=== PATIENT | female | born 1955 | race Two or more races ===

== ENCOUNTER 2016-06-18 12:17 | Emergency (ER) | payer MEDICAID ==
[2016-06-18 14:06] VITALS: BP 119/78; PULSE 104; RESP 20; TEMP 98.8; O2SAT 94
--- NOTE | 2016-06-18 14:43 | UCPHY ---
H & P Time Seen by Provider: 06/18/16 14:10 Patient Type: Established HPI/ROS: This patient has sore throat, cough and chills that started 3 days prior to arrival. She reports feeling of chest congestion associated with this. She has mild myalgias but denies any fevers. She notes no exacerbating or alleviating factors for her symptoms. ROS: No fatigue. She reports no significant nasal congestion. No ear pain. No pleuritic pain. No respiratory distress. No vomiting. 7 point ROS is otherwise negative. Past Medical/Surgical History: GERD. Otherwise healthy Smoking Status: Former smoker Physical Exam: General Appearance: Alert, no distress. Eyes: Pupils equal and round no pallor or injection. ENT, Mouth: Mucous membranes moist. Respiratory: Mild rhonchi and expiratory wheeze bilaterally. No rales. No respiratory distress. Cardiovascular: Regular rate and rhythm. No murmur gallop or rub Gastrointestinal: Abdomen is soft and nontender, no masses, bowel sounds normal. Neurological: Alert with no focal deficits Skin: Warm and dry, no rashes. Musculoskeletal: Neck is supple nontender. Extremities are symmetrical, full range of motion. Psychiatric: Mood and affect are normal DIFFERENTIAL DIAGNOSIS: After history and physical exam differential diagnosis was considered for bronchitis, viral URI with cough, doubt pneumonia Constitutional: Initial Vital Signs Temperature (C) 37.1 C 06/18/16 14:01 Heart Rate 104 H 06/18/16 14:01 Respiratory Rate 20 06/18/16 14:01 Blood Pressure 119/78 06/18/16 14:01 O2 Sat (%) 94 06/18/16 14:01 O2 Delivery Mode Room Air Allergies/Adverse Reactions: azithromycin [From Zithromax] Allergy (Unknown, Verified 06/18/16 14:01) codeine Allergy (Unknown, Verified 06/18/16 14:01) homatropine [From Hydromet] Allergy (Unknown, Verified 03/26/15 20:08) homatropine methylbromide [From Hydromet] Allergy (Unknown, Verified 06/18/16 14 :01) hydrocodone bitartrate [From Vicodin] Allergy (Unknown, Verified 06/18/16 14:01) nitrofurantoin macrocrystalline [From Macrodantin] Allergy (Unknown, Verified 14:01) Sulfa (Sulfonamide Antibiotics) Allergy (Unknown, Verified 06/18/16 14:01) Home Medications: Medication Instructions Recorded Pepcid 09/08/14 Fluoxetine 02/19/15 Albuterol Hfa Anes Only [Proair 2 puffs IH Q4 PRN #1 mdi 06/18/16 Hfa Icu (*)] Doxycycline Hyclate 100 mg PO BID #14 capsule 06/18/16 MDM/Departure - MDM ED Course/Re-evaluation: I counseled the patient regarding bronchitis. Her rapid influenza swab is negative. - Depart Disposition: Home, Routine, Self-Care Instructions: Acute Bronchitis (ED) Additional Instructions: Diagnosis: Acute bronchitis Plan: Humidifier Doxycycline antibiotic Albuterol inhaler with spacer for cough, wheeze or shortness of breath Ibuprofen for fevers Return for any significant worsening despite the treatment plan Stand Alone Forms: Work Excuse Prescriptions: Doxycycline Hyclate 100 mg PO BID #14 capsule Albuterol Hfa Anes Only [Proair Hfa Icu (*)] 2 puffs IH Q4 PRN #1 mdi PRN Reason: Wheezing Referrals: Savita Vides DO [Primary Care Provider] - As per Instructions - PQRS PQRS Measurement: NA
== END 2016-06-18 15:00 | disposition home or self-care (01) ==
LOC: CED 12:17
DX: J20.9 Acute bronchitis, unspecified (principal)
CPT/HCPCS: 87400-PO; 99214-PO; G0463-PO

== ENCOUNTER 2016-07-21 22:06 | Emergency (ER) | payer MEDICAID ==
[2016-07-21 22:40] VITALS: BP 113/78; PULSE 80; RESP 16; TEMP 97.7; O2SAT 99
[2016-07-21] MEDS ORDERED: TDAP ADULT 0.5 ML INJ (BOOSTRIX) IM ONE (22:52)
--- NOTE | 2016-07-21 22:53 | UCPHY ---
H & P Time Seen by Provider: 07/21/16 22:36 Patient Type: Established HPI/ROS: CC: Laceration of thumb that was simply will not heal HPI: Right Handed Injury of the right thumb, from cutting edge of a Saran wrap container some 5 days ago This happened at home , occurring 5 days ago Reports there is no numbness or loss of sensation. Contamination: None FB possibility none She is here tonight as a simply will not heal and has continued to bother and cause some pain to the tip ROS Neuro: No numbness or tingling or loss of sensation Smoking Status: Former smoker Physical Exam: Gen: Well-developed. Well-nourished. No odor of alcohol. Nontoxic. Afebrile. Extremity: There is a [to ] cm, [linear] laceration that is [split] to the pad of the right thumb. It has a whitish appearance of a small degree as well as some erythema around it to suggest a wound infection. There is no lymphangitis Function: [Without] signs of tendon dysfnction NV Status: Intact CMS: Intact Allergies/Adverse Reactions: azithromycin [From Zithromax] Allergy (Unknown, Verified 07/21/16 22:37) codeine Allergy (Unknown, Verified 07/21/16 22:37) homatropine [From Hydromet] Allergy (Unknown, Verified 07/21/16 22:37) homatropine methylbromide [From Hydromet] Allergy (Unknown, Verified 07/21/16 22 :37) hydrocodone bitartrate [From Vicodin] Allergy (Unknown, Verified 07/21/16 22:37) nitrofurantoin macrocrystalline [From Macrodantin] Allergy (Unknown, Verified 22:37) Sulfa (Sulfonamide Antibiotics) Allergy (Unknown, Verified 07/21/16 22:37) Home Medications: Medication Instructions Recorded Cephalexin [Keflex (*)] 500 mg PO TID #21 cap 07/21/16 Medical Decision Making Differential Diagnosis: Diagnostic considerations include, but are not limited to, the following: Laceration, retained FB, tendon injury, fracture, cellulitis. This is a slow healing wound. It will be better to heal by closure with Steri- Strips as she notes she feels better if that is the case, protection with a stack splint, and started on Keflex therapy Departure - Departure Disposition: Home, Routine, Self-Care Clinical Impression: Laceration Condition: Good Instructions: Laceration (ED), Wound Infection (ED) Additional Instructions: Clean the area with hydrogen peroxide once daily. Reapply the Steri-Strips. Wear the splint for the next 10-14 days Keflex 5 mg 3 times daily for 7 days Prescriptions: Cephalexin [Keflex (*)] 500 mg PO TID #21 cap - PQRS PQRS Measurement: Not applicable
[2016-07-21] MEDS ORDERED: CEPHALEXIN 500MG PREPACK#4 BTL TAKEHOME ONE (22:56)
== END 2016-07-21 23:14 | disposition home or self-care (01) ==
LOC: CED 22:06
DX: S61.011A Laceration without foreign body of right thumb without damage to nail, initial encounter (principal); W26.8XXA Contact with other sharp object(s), not elsewhere classified, initial encounter; Y92.019 Unspecified place in single-family (private) house as the place of occurrence of the external cause; Z87.891 Personal history of nicotine dependence; Z23 Encounter for immunization
CPT/HCPCS: 99214-PO; G0463-PO

== ENCOUNTER 2016-08-20 13:50 | Emergency (ER) | payer MEDICAID ==
[2016-08-20 14:10] VITALS: BP 147/95; PULSE 96; RESP 18; TEMP 98.6; O2SAT 96
== END 2016-08-20 14:38 | disposition left against medical advice (07) ==
LOC: CED 13:50
DX: R05 Cough (principal); Z53.8 Procedure and treatment not carried out for other reasons

== ENCOUNTER → 2016-11-22 | Outpatient (CLI) | payer MEDICAID | LOC: BRMIMAGING 07:58 | PROVIDERS: ATTEND Family Medicine | DX: Z12.31 Encounter for screening mammogram for malignant neoplasm of breast (principal) | CPT/HCPCS: G0202 ==

== ENCOUNTER 2017-04-09 08:48 | Emergency (ER) | payer MEDICAID ==
[2017-04-09] MEDS ORDERED: NS 1,000 ML IV ONE ×2 (09:01→09:25)
[2017-04-09] MEDS ORDERED: ONDANSETRON 4 MG/2 ML VIAL IVP ONE ×2 (09:02→10:50)
[2017-04-09 09:05] VITALS: TEMP 99
[2017-04-09] MEDS ORDERED: HALOPERIDOL LACT 5 MG/ML INJ IVP ONE (09:25)
--- NOTE | 2017-04-09 09:28 | EDPHY ---
H & P Stated Complaint: c/o N/V/D lower abd pain since 0400 this am- denies recent illness Time Seen by Provider: 04/09/17 09:07 HPI/ROS: CHIEF COMPLAINT: Vomiting HISTORY OF PRESENT ILLNESS: Patient is a 61-year-old female who presents to the emergency department complaining of nausea vomiting and diarrhea for the last 6 hours. She has not had a fever. She denies abdominal pain. No history of abdominal surgery. She started an antibiotic for her sinus infection 3 days ago but is unsure if the kind. She also takes fluoxetine daily but did not take it today. No blood in her vomit or stool. REVIEW OF SYSTEMS: Constitutional: denies: chills, fever, recent illness, recent injury EENTM: denies: blurred vision, double vision, nose congestion Respiratory: denies: cough, shortness of breath Cardiac: denies: chest pain, irregular heart rate, lightheadedness, palpitations Gastrointestinal/Abdominal: See HPI Genitourinary: denies: dysuria, frequency, hematuria, pain Musculoskeletal: denies: joint pain, muscle pain Skin: denies: lesions, rash, jaundice, bruising Neurological: denies: headache, numbness, paresthesia, tingling, dizziness, weakness Hematologic/Lymphatic: denies: blood clots, easy bleeding, easy bruising Immunologic/allergic: denies: HIV/AIDS, transplant EXAM: GENERAL: Well-appearing, well-nourished and in no acute distress. HEAD: Atraumatic, normocephalic. EYES: Pupils equal round and reactive to light, extraocular movements intact, sclera anicteric, conjunctiva are normal. ENT: TMs normal, nares patent, oropharynx clear without exudates. Moist mucous membranes. NECK: Normal range of motion, supple without lymphadenopathy or JVD. LUNGS: Breath sounds clear to auscultation bilaterally and equal. No wheezes rales or rhonchi. HEART: Regular rate and rhythm without murmurs, rubs or gallops. ABDOMEN: No obvious tenderness, difficult to assess because begins to vomit when I get close to palpating her abdomen. BACK: No CVA tenderness, no spinal tenderness, step-offs or deformities EXTREMITIES: Normal range of motion, no pitting or edema. No clubbing or cyanosis. NEUROLOGICAL: Cranial nerves II through XII grossly intact. Normal speech, normal gait. 5/5 strength, normal movement in all extremities, normal sensation PSYCH: Normal mood, normal affect. SKIN: Warm, dry, normal turgor, no visible rashes or lesions. Source: Patient Exam Limitations: No limitations - Personal History Current Tetanus Diphtheria and Acellular Pertussis (TDAP): Yes Tetanus Vaccine Date: 09/07/14 - Medical/Surgical History Hx Asthma: No Hx Chronic Respiratory Disease: No Hx Diabetes: No Hx Cardiac Disease: No Hx Renal Disease: No Hx Cirrhosis: No Hx Alcoholism: Yes Hx HIV/AIDS: No Hx Splenectomy or Spleen Trauma: No Other PMH: Med hx-none. Surg-none - Family History Significant Family History: No pertinent family hx - Social History Smoking Status: Current some day smoker Alcohol Use: Sober Drug Use: None Constitutional: Initial Vital Signs Temperature (C) 37.2 C 04/09/17 09:02 Heart Rate 76 04/09/17 09:02 Respiratory Rate 18 04/09/17 09:02 Blood Pressure 175/93 H 04/09/17 09:02 O2 Sat (%) 98 04/09/17 09:02 O2 Delivery Mode Room Air Allergies/Adverse Reactions: azithromycin [From Zithromax] Allergy (Unknown, Verified 08/20/16 14:07) codeine Allergy (Unknown, Verified 08/20/16 14:07) homatropine [From Hydromet] Allergy (Unknown, Verified 08/20/16 14:07) homatropine methylbromide [From Hydromet] Allergy (Unknown, Verified 08/20/16 14 :07) hydrocodone bitartrate [From Vicodin] Allergy (Unknown, Verified 08/20/16 14:07) nitrofurantoin macrocrystalline [From Macrodantin] Allergy (Unknown, Verified 14:07) Sulfa (Sulfonamide Antibiotics) Allergy (Unknown, Verified 08/20/16 14:07) Home Medications: Medication Instructions Recorded FLUoxetine 08/20/16 Ondansetron Odt [Zofran Odt 4 mg 4 mg PO Q4 PRN #20 tab 04/09/17 (RX)] Medical Decision Making ED Course/Re-evaluation: 9:55 a.m. the patient is doing much better. Her repeat abdominal exam is benign. Her lab work is reassuring. We will continue to hydrate and observe. 10:50 a.m. the patient is feeling slightly nauseous again. We will treat with Zofran. Her abdominal exam remains benign. 11:40 a.m. the patient is feeling better and is ready to go home. Differential Diagnosis: Partial list of the Differential diagnosis considered include but were not limited to; gastritis, food poisoning, medication reaction and although unlikely based on the history and physical exam, I also considered biliary disease, appendicitis, obstruction, volvulus. I discussed these differential diagnoses and the plan with the patient as well as the usual and expected course. The patient understands that the diagnosis is provisional and that in medicine we are not always correct and that further workup is often warranted. Usual and customary warnings were given. All of the patient's questions were answered. The patient was instructed to return to the emergency department should the symptoms at all worsen or return, otherwise to followup with the physician as we discussed. - Data Points Laboratory Results: Laboratory Results 04/09/17 09:07 04/09/17 09:07 04/09/17 04/09/17 09:07 09:07 WBC 4.79 10^3/uL 10^3/uL (3.80-9.50) RBC 4.04 10^6/uL L 10^6/uL (4.18-5.33) Hgb 13.3 g/dL g/dL (12.6-16.3) Hct 37.9 % L % (38.0-47.0) MCV 93.8 fL fL (81.5-99.8) MCH 32.9 pg pg (27.9-34.1) MCHC 35.1 g/dL g/dL (32.4-36.7) RDW 14.2 % % (11.5-15.2) Plt Count 179 10^3/uL 10^3/uL (150-400) MPV 9.0 fL fL (8.7-11.7) Neut % (Auto) 66.8 % % (39.3-74.2) Lymph % (Auto) 25.9 % % (15.0-45.0) [place] % (Auto) 6.3 % % (4.5-13.0) Eos % (Auto) 0.0 % L % (0.6-7.6) Baso % (Auto) 0.4 % % (0.3-1.7) Nucleat RBC Rel Count 0.0 % % (0.0-0.2) Absolute Neuts (auto) 3.20 10^3/uL 10^3/uL (1.70-6.50) Absolute Lymphs (auto) 1.24 10^3/uL 10^3/uL (1.00-3.00) Absolute Monos (auto) 0.30 10^3/uL 10^3/uL (0.30-0.80) Absolute Eos (auto) 0.00 10^3/uL L 10^3/uL (0.03-0.40) Absolute Basos (auto) 0.02 10^3/uL 10^3/uL (0.02-0.10) Absolute Nucleated RBC 0.00 10^3/uL 10^3/uL (0-0.01) Immature Gran % 0.6 % % (0.0-1.1) Immature Gran # 0.03 10^3/uL 10^3/uL (0.00-0.10) Sodium 142 mEq/L mEq/L (134-144) Potassium 3.4 mEq/L L mEq/L (3.5-5.2) Chloride 103 mEq/L mEq/L (97-110) Carbon Dioxide 26 mEq/l mEq/l (22-31) Anion Gap 13 mEq/L mEq/L (8-16) BUN 13 mg/dL mg/dL (7-23) Creatinine 0.5 mg/dL L mg/dL (0.6-1.0) Estimated GFR > 60 Glucose 141 mg/dL H mg/dL (70-100) Calcium 9.1 mg/dL mg/dL (8.5-10.4) Total Bilirubin 0.9 mg/dL mg/dL (0.1-1.4) Conjugated Bilirubin 0.4 mg/dL mg/dL (0.0-0.5) Unconjugated Bilirubin 0.5 mg/dL mg/dL (0.0-1.1) AST 30 IU/L IU/L (14-46) ALT 32 IU/L IU/L (9-52) Alkaline Phosphatase 149 IU/L H IU/L (38-126) Total Protein 7.5 g/dL g/dL (6.3-8.2) Albumin 4.7 g/dL g/dL (3.5-5.0) Lipase 155 IU/L IU/L (23-300) Medications Given: Discontinued Medications Haloperidol Lactate (Haldol Injection) 2.5 mg IVP EDNOW ONE Stop: 04/09/17 09:26 Last Admin: 04/09/17 09:28 Dose: 2.5 mg Sodium Chloride (Ns) 1,000 mls @ 0 mls/hr IV ONCE ONE PRN Reason: Wide Open Stop: 04/09/17 09:02 Last Admin: 04/09/17 09:09 Dose: 1,000 mls Sodium Chloride (Ns) 1,000 mls @ 0 mls/hr IV EDNOW ONE; Wide Open PRN Reason: Protocol Stop: 04/09/17 09:26 Last Admin: 04/09/17 09:35 Dose: 1,000 mls Ondansetron HCl (Zofran) 4 mg IVP EDNOW ONE Stop: 04/09/17 09:03 Last Admin: 04/09/17 09:09 Dose: 4 mg Ondansetron HCl (Zofran) 4 mg IVP EDNOW ONE Stop: 04/09/17 10:51 Last Admin: 04/09/17 10:55 Dose: 4 mg Departure - Departure Disposition: Home, Routine, Self-Care Clinical Impression: Vomiting and diarrhea Condition: Fair Instructions: Ondansetron (By mouth), Gastroenteritis (ED) Referrals: Savita Vides DO [Primary Care Provider] - As per Instructions Stand Alone Forms: Work Excuse Prescriptions: Ondansetron Odt [Zofran Odt 4 mg (RX)] 4 mg PO Q4 PRN #20 tab PRN Reason: Nausea & Vomiting
[2017-04-09 09:31] LABS: % IMMATURE GRANULYOCYTES 0.6 % (0.0-1.1); ABSOLUTE IMMATURE GRANULOCYTES 0.03 10^3/uL (0.00-0.10); ADD DIFF? NO; ADD MORPH? NO; ADD SCAN? NO; ATYPICAL LYMPHOCYTE FLAG 0 (0-99); FRAGMENT RBC FLAG 0 (0-99); HEMATOCRIT 37.9 % (38.0-47.0); HEMOGLOBIN 13.3 g/dL (12.6-16.3); LEFT SHIFT FLG 0 (0-99); LIPEMIA HEMOLYSIS FLAG 90 (0-99); MEAN CELL HEMOGLOBIN 32.9 pg (27.9-34.1); MEAN CELL HEMOGLOBIN CONCENTR. 35.1 g/dL (32.4-36.7); MEAN CELL VOLUME 93.8 fL (81.5-99.8); PLATELET CLUMPS FLAG 0 (0-99); PLATELET COUNT 179 10^3/uL (150-400); RED BLOOD CELL COUNT 4.04 10^6/uL (4.18-5.33); RED CELL DISTRIBUTION WIDTH 14.2 % (11.5-15.2)
[2017-04-09 09:40] LABS: ALANINE AMINOTRANSFERASE 32 IU/L (9-52); ALBUMIN 4.7 g/dL (3.5-5.0); ALKALINE PHOSPHATASE 149 IU/L (38-126); ANION GAP 13 mEq/L (8-16); ASPARTATE AMINOTRANSFERASE 30 IU/L (14-46); BILIRUBIN,TOTAL 0.9 mg/dL (0.1-1.4); BILIRUBIN-CONJUGATED 0.4 mg/dL (0.0-0.5); BILIRUBIN-UNCONJUGATED 0.5 mg/dL (0.0-1.1); CALCIUM 9.1 mg/dL (8.5-10.4); CARBON DIOXIDE 26 mEq/l (22-31); CHLORIDE 103 mEq/L (97-110); CREATININE 0.5 mg/dL (0.6-1.0); GLOMERULAR FILTRATION RATE > 60; GLUCOSE 141 mg/dL (70-100); POTASSIUM 3.4 mEq/L (3.5-5.2); SODIUM 142 mEq/L (134-144); TOTAL PROTEIN 7.5 g/dL (6.3-8.2)
[2017-04-09 10:37] VITALS: RESP 16
[2017-04-09 12:06] VITALS: BP 139/91; PULSE 76; O2SAT 96
== END 2017-04-09 12:50 | disposition home or self-care (01) ==
LOC: CED 08:48
DX: R11.10 Vomiting, unspecified (principal); R19.7 Diarrhea, unspecified; F17.200 Nicotine dependence, unspecified, uncomplicated; E86.9 Volume depletion, unspecified
CPT/HCPCS: 80048-PO; 80076-PO; 83690-PO; 85025-PO; 96374; J2405

== ENCOUNTER 2017-10-10 14:06 | Emergency (ER) | payer MEDICAID ==
[2017-10-10 14:14] VITALS: BP 98/77
[2017-10-10] MEDS ORDERED: diphenhydrAMINE 25 MG CAP PO ONE (14:18)
[2017-10-10] MEDS ORDERED: predniSONE 20 MG TAB PO ONE (14:18)
--- NOTE | 2017-10-10 14:18 | EDPHY ---
H & P Time Seen by Provider: 10/10/17 14:18 HPI/ROS: Chief complaint. Allergic reaction HPI. 62-year-old female presents emergency department with allergic reaction. She was at work in tried a new perfume which she sprayed on her arms and her neck. 15 min later she was itching all over and has some erythematous hives to her arms. She has no trouble breathing or swallowing. She has had previous allergic reactions and this feels like allergic reaction. Otherwise she has not been ill. No other new foods cleansers clothing. No treatment before arrival. ROS Constitutional. no fever/chills, no weakness Eyes. no problems with vision ENT. no sore throat, no nasal drainage Cardiovascular. no chest pain Respiratory. no shortness of breath, no cough Abdominal. no abdominal pain, no nausea/vomiting, no diarrhea . no problems urinating MS. no calf pain/swelling, no neck/back pain, no joint pain Skin. Hives and itching Lymph. no swollen glands Neuro. no headache, no dizziness, no difficulty walking or with speech Past Medical/Surgical History: Previous allergic reactions Social History: Single, nonsmoker, no alcohol Smoking Status: Former smoker Physical Exam: General Appearance: Alert pleasant well-developed female moderate distress vital signs show a heart rate of 104. Initial blood pressure 98/77 Eyes: Pupils equal and round no pallor or injection. ENT, pharynx without injection. There is no stridor. Patient speaks in full sentences Respiratory: There are no retractions, lungs are clear to auscultation. Cardiovascular: Regular rate and rhythm. Gastrointestinal: Abdomen is soft and nontender, no masses, bowel sounds normal. Neurological: Awake and alert, sensory and motor exams grossly normal. Skin: Mild erythematous high is to right and left forearm. Right greater than left. Musculoskeletal: Neck is supple nontender. Extremities symmetrical, full range of motion. Psychiatric: Patient is oriented X 3, there is no agitation. Constitutional: Initial Vital Signs Temperature (C) 36.9 C 10/10/17 14:11 Heart Rate 104 H 10/10/17 14:11 Respiratory Rate 16 10/10/17 14:11 Blood Pressure 98/77 L 10/10/17 14:11 O2 Sat (%) 95 10/10/17 14:11 O2 Delivery Mode Room Air Allergies/Adverse Reactions: azithromycin [From Zithromax] Allergy (Unknown, Verified 10/10/17 14:10) codeine Allergy (Unknown, Verified 10/10/17 14:10) homatropine [From Hydromet] Allergy (Unknown, Verified 10/10/17 14:10) homatropine methylbromide [From Hydromet] Allergy (Unknown, Verified 10/10/17 14 :10) hydrocodone bitartrate [From Vicodin] Allergy (Unknown, Verified 10/10/17 14:10) nitrofurantoin macrocrystalline [From Macrodantin] Allergy (Unknown, Verified 14:10) Sulfa (Sulfonamide Antibiotics) Allergy (Unknown, Verified 10/10/17 14:10) Home Medications: Medication Instructions Recorded FLUoxetine 08/20/16 Ondansetron Odt [Zofran Odt 4 mg 4 mg PO Q4 PRN #20 tab 04/09/17 (RX)] Medical Decision Making Procedures: Benadryl and prednisone orally. Patient will use washcloth and towel to rinse the perfume off. ED Course/Re-evaluation: Patient and I discussed treatment plan including criteria for return importance of follow-up and further evaluation. She expresses understanding and agreement Re-evaluation at 2:50 p.m. Patient wants to go home. No progression of symptoms Differential Diagnosis: Allergic reaction apparently secondary to new perfume. No Respiratory embarrassment. - Data Points Medications Given: Discontinued Medications Diphenhydramine HCl (Benadryl) 25 mg PO EDNOW ONE Stop: 10/10/17 14:19 Last Admin: 10/10/17 14:24 Dose: 25 mg Prednisone (Prednisone) 60 mg PO EDNOW ONE Stop: 10/10/17 14:19 Last Admin: 10/10/17 14:24 Dose: 60 mg Departure - Departure Disposition: Home, Routine, Self-Care Clinical Impression: Allergic reaction Qualifiers: Encounter type: initial encounter Qualified Code(s): T78.40XA - Allergy, unspecified, initial encounter Condition: Good Instructions: General Allergic Reaction (ED) Additional Instructions: Benadryl 25 mg 1 pill every 6-8 hours as needed for itching rash. Return for worsening symptoms. Recheck in 1 day if not improving Referrals: Savita Vides DO [Primary Care Provider] - 1 day, if not improved Stand Alone Forms: Work Excuse
[2017-10-10] MEDS ORDERED: predniSONE 20 MG TAB ONE (14:29)
== END 2017-10-10 14:48 | disposition home or self-care (01) ==
LOC: CED 14:06
DX: T78.49XA Other allergy, initial encounter (principal); Z87.891 Personal history of nicotine dependence
CPT/HCPCS: J7512

== ENCOUNTER → 2017-12-13 | Outpatient (CLI) | payer SELFPAY | LOC: CIMAGING 15:31 | PROVIDERS: ATTEND Family Medicine | DX: J34.89 Other specified disorders of nose and nasal sinuses (principal); R51 Headache | CPT/HCPCS: 70150-PO ==

== ENCOUNTER 2018-08-07 16:09 | Emergency (ER) | payer MEDICAID ==
[2018-08-07] MEDS ORDERED: LORazepam 2 MG/ML INJ ONE (17:13)
[2018-08-07] MEDS ORDERED: PROMETHAZINE HCL 25 MG/ML INJ ONE (17:13)
[2018-08-07] MEDS ORDERED: LORazepam 1 MG TAB PO PRN (17:14)
[2018-08-07] MEDS ORDERED: NS 1,000 ML IV ONE ×2 (17:14)
[2018-08-07] MEDS ORDERED: PROMETHAZINE HCL 25 MG/ML INJ IVP ONE (17:14)
--- NOTE | 2018-08-07 17:14 | EDPHY ---
H & P Stated Complaint: ETOH withdrawl Time Seen by Provider: 08/07/18 17:08 HPI/ROS: HPI: This is a 63-year-old female who presents with Chief Complaint: Nausea, vomiting, epigastric pain, alcohol withdrawal Location: GI Quality: Nausea, vomiting Duration: 3 hr Signs and Symptoms: no fever, + nausea, + vomiting, no hematemesis, no blood in stool, no abdominal bloating, no diarrhea, no back pain, no urinary symptoms, no vaginal bleeding/discharge, no indigestion, no chest pain, no shortness of breath Timing: Acute, constant Severity: Moderate Context: Patient has a history of alcoholism, presents today with 2-3 hours of nausea and vomiting approximately 5 times and now having dry heaves accompanied by epigastric and right upper quadrant pain that is described as moderate, nonradiating in nature and constant. Patient reports that she had her last drink was approximately around 2:00 p.m., 3 hr prior to arrival. She reports that she drinks 2 bottles of wine daily. She denies any history of alcohol withdrawal seizures. She called [facility] as well as the [facility] and was advised to go to the emergency room for evaluation and treatment. She is willing to go to the [facility] for further detox and rehab. Modifying Factors: None Comment: ROS: A comprehensive 10 system review of systems is otherwise negative aside from elements mentioned in the history of present illness. MEDICAL/SURGICAL/SOCIAL HISTORY: Medical history: Alcoholism. Postmenopausal. Surgical history: Denies Social history: Former smoker. Family history noncontributory. CONSTITUTIONAL: Ill, moderate distress, elderly female, nontoxic in appearance , awake and alert, sitting up in bed guarding her abdomen rocking back and forth HEENT: Atraumatic and normocephalic, PERRL, EOMI. Nares patent; no rhinorrhea; no nasal mucosal edema. Tympanic membranes clear. Oropharynx clear, no exudate and moist pink mucosa. Airway patent. No lymphadenopathy. No meningismus. Cardiovascular: Normal S1/S2, regular rate, regular rhythm, without murmur rub or gallop. PULMONARY/CHEST: Symmetrical and nontender. Clear to auscultation bilaterally. Good air movement. No accessory muscle usage. ABDOMEN: Soft, nondistended, moderate right upper quadrant and epigastric tenderness, no rebound, + guarding, no peritoneal signs, no masses or organomegaly. No CVAT. EXTREMITIES: 2/2 pulses, strength 5/5, no deformities, no clubbing, no cyanosis or edema. NEUROLOGICAL: no focal neuro deficits. GCS 15. SKIN: Warm and dry, no erythema. no rash. Good capillary refill. Source: Patient Exam Limitations: No limitations - Personal History Current Tetanus/Diphtheria Vaccine: Yes Current Tetanus Diphtheria and Acellular Pertussis (TDAP): Yes Tetanus Vaccine Date: 09/07/14 - Medical/Surgical History Hx Asthma: No Hx Chronic Respiratory Disease: No Hx Diabetes: No Hx Cardiac Disease: No Hx Renal Disease: No Hx Cirrhosis: No Hx Alcoholism: Yes Hx HIV/AIDS: No Hx Splenectomy or Spleen Trauma: No Other PMH: Med hx-ETOH. Surg-none - Social History Smoking Status: Former smoker Constitutional: Initial Vital Signs Temperature (C) 37 C 08/07/18 16:14 Heart Rate 85 08/07/18 16:14 Respiratory Rate 16 08/07/18 16:14 Blood Pressure 138/87 H 08/07/18 16:14 O2 Sat (%) 92 08/07/18 16:14 O2 Delivery Mode Room Air O2 (L/minute) 2 Allergies/Adverse Reactions: azithromycin [From Zithromax] Allergy (Unknown, Verified 08/07/18 16:13) codeine Allergy (Unknown, Verified 08/07/18 16:13) homatropine [From Hydromet] Allergy (Unknown, Verified 08/07/18 16:13) homatropine methylbromide [From Hydromet] Allergy (Unknown, Verified 08/07/18 16 :13) hydrocodone bitartrate [From Vicodin] Allergy (Unknown, Verified 08/07/18 16:13) nitrofurantoin macrocrystalline [From Macrodantin] Allergy (Unknown, Verified 16:13) Sulfa (Sulfonamide Antibiotics) Allergy (Unknown, Verified 08/07/18 16:13) Medical Decision Making - Diagnostics Imaging Results: Imaging Impressions Abdomen Ultrasound 08/07/18 17:18 Impression: 1. Slightly limited study with no acute findings. 2. Fatty liver. 3. Additional findings as above. Findings discussed with Carole Miles 08/07/2018 at 18:16. ED Course/Re-evaluation: Vital signs reviewed and stable upon arrival. No systemic signs. Placed on conveyor monitor. IV access, laboratory studies, abdominal ultrasound ordered Chart review shows that CT scan in 2010 showed cholelithiasis without cholecystitis. CIWA upon arrival=16 Given 2 L normal saline, IV Ativan, IV promethazine 12.5 mg 173: Notified by RN that patient receive medications and is now sleeping soundly. O2 sats dropped to 84% room air during sleep. Placed on O2-2 L nasal cannula. 175: Labs reviewed. Leukopenia noted; chart review shows history of same. Macrocytosis without anemia. No signs of platelet dysfunction/SNEHAL/electrolyte imbalance/pancreatitis. Mildly elevated AST/ALT Likely due to alcoholism. No signs of delirium tremens/seizure activity. 1809: Reassessed patient. CIWA scale= 8. IV Ativan 1 mg given 1816: Called by Radiology, Dr. Tyler, who reports that abdominal ultrasound shows no acute intra-abdominal process. No signs of cholecystitis, cholelithiasis, gallbladder sludge, pancreatitis. Positive for fatty liver. 1914: Reassessed patient. CIWA scale=1 2003: Reassessed patient. Sleeping soundly. Unable to ambulate without moderate assistance. 2315: After 8 hr in the emergency room, Road Test performed by [employer] and patient passed. Walking back and forth to the bathroom without difficulty. Patient is appropriate for discharge to the [facility]. Librium prepack provided. This patient was seen under the supervision of my secondary supervising physician. I evaluated care for this patient with attending. Discussed this patient with Dr. Gray who did not see the patient. Differential Diagnosis: Abdominal pain including but not limited to appendicitis, cholecystitis, gastritis and urinary tract infection. - Data Points Laboratory Results: Laboratory Results 08/07/18 17:05 08/07/18 17:05 08/07/18 08/07/18 17:05 17:05 WBC 3.03 10^3/uL L 10^3/uL (3.80-9.50) RBC 3.74 10^6/uL L 10^6/uL (4.18-5.33) Hgb 12.7 g/dL g/dL (12.6-16.3) Hct 38.0 % % (38.0-47.0) MCV 101.6 fL H fL (81.5-99.8) MCH 34.0 pg pg (27.9-34.1) MCHC 33.4 g/dL g/dL (32.4-36.7) RDW 12.9 % % (11.5-15.2) Plt Count 159 10^3/uL 10^3/uL (150-400) MPV 9.2 fL fL (8.7-11.7) Neut % (Auto) 44.2 % % (39.3-74.2) Lymph % (Auto) 44.2 % % (15.0-45.0) [place] % (Auto) 9.6 % % (4.5-13.0) Eos % (Auto) 0.7 % % (0.6-7.6) Baso % (Auto) 1.3 % % (0.3-1.7) Nucleat RBC Rel Count 0.0 % % (0.0-0.2) Absolute Neuts (auto) 1.34 10^3/uL L 10^3/uL (1.70-6.50) Absolute Lymphs (auto) 1.34 10^3/uL 10^3/uL (1.00-3.00) Absolute Monos (auto) 0.29 10^3/uL L 10^3/uL (0.30-0.80) Absolute Eos (auto) 0.02 10^3/uL L 10^3/uL (0.03-0.40) Absolute Basos (auto) 0.04 10^3/uL 10^3/uL (0.02-0.10) Absolute Nucleated RBC 0.00 10^3/uL 10^3/uL (0-0.01) Immature Gran % 0.0 % % (0.0-1.1) Immature Gran # 0.00 10^3/uL 10^3/uL (0.00-0.10) Sodium 142 mEq/L mEq/L (135-145) Potassium 4.1 mEq/L mEq/L (3.5-5.2) Chloride 108 mEq/L mEq/L (97-110) Carbon Dioxide 26 mEq/l mEq/l (22-31) Anion Gap 8 mEq/L mEq/L (6-14) BUN 14 mg/dL mg/dL (7-23) Creatinine 0.5 mg/dL L mg/dL (0.6-1.0) Estimated GFR > 60 Glucose 95 mg/dL mg/dL (70-100) Calcium 8.6 mg/dL mg/dL (8.5-10.4) Total Bilirubin 0.5 mg/dL mg/dL (0.1-1.4) Conjugated Bilirubin 0.2 mg/dL mg/dL (0.0-0.5) Unconjugated Bilirubin 0.3 mg/dL mg/dL (0.0-1.1) AST 184 IU/L H IU/L (14-46) ALT 82 IU/L H IU/L (9-52) Alkaline Phosphatase 112 IU/L IU/L (38-126) Total Protein 7.4 g/dL g/dL (6.3-8.2) Albumin 4.5 g/dL g/dL (3.5-5.0) Lipase 137 IU/L IU/L (23-300) Medications Given: Lorazepam (Ativan Injection) 0 mg IVP Q1H PRN; Protocol PRN Reason: Alcohol Withdrawal w/IV access Stop: 08/08/18 05:14 Last Admin: 08/07/18 18:12 Dose: 1 mg Discontinued Medications Chlordiazepoxide (Librium 25 Mg Prepack#6) 1 btl TAKEHOME EDNOW ONE Stop: 08/07/18 23:15 Last Admin: 08/08/18 00:10 Dose: 1 btl Sodium Chloride (Ns) 1,000 mls @ 0 mls/hr IV EDNOW ONE; Wide Open PRN Reason: Protocol Stop: 08/07/18 17:15 Last Admin: 08/07/18 17:25 Dose: 1,000 mls Sodium Chloride (Ns) 1,000 mls @ 0 mls/hr IV EDNOW ONE; Wide Open PRN Reason: Protocol Stop: 08/07/18 17:15 Last Admin: 08/07/18 17:25 Dose: 1,000 mls Promethazine HCl (Phenergan) 12.5 mg IVP EDNOW ONE Stop: 08/07/18 17:15 Last Admin: 08/07/18 17:26 Dose: 12.5 mg Departure - Departure Disposition: Home, Routine, Self-Care Clinical Impression: Alcohol abuse, Alcohol withdrawal syndrome without complication, Fatty liver, alcoholic Condition: Good Instructions: Abuse of Alcohol (ED), Alcohol Withdrawal (ED), Alcohol Use Disorder (ED) Additional Instructions: Please refrain from drinking alcohol excessively. Referrals: Randy Pelaez [Primary Care Provider] - As per Instructions [facility] [Outside] - As per Instructions [facility],. [Clinic] - As per Instructions
[2018-08-07] MEDS: LORazepam 2 MG/ML INJ IVP PRN ×2 (17:24→18:12)
[2018-08-07 17:45] LABS: PLATELET COUNT 159 10^3/uL (150-400)
[2018-08-07 22:50] VITALS: BP 127/88
[2018-08-07] MEDS ORDERED: CHLORDIAZEPOXIDE 25MG PREPK#6 BTL TAKEHOME ONE (23:14)
== END 2018-08-08 01:19 | disposition home or self-care (01) ==
DX: F10.230 Alcohol dependence with withdrawal, uncomplicated (principal); K76.0 Fatty (change of) liver, not elsewhere classified; E86.9 Volume depletion, unspecified
CPT/HCPCS: 96374; J2060; J2550

== ENCOUNTER 2018-08-22 18:02 | Emergency (ER) | payer MEDICAID ==
--- NOTE | 2018-08-22 18:12 | EDPHY ---
H & P Time Seen by Provider: 08/22/18 18:05 HPI/ROS: CHIEF COMPLAINT: "I drank alcohol" HISTORY OF PRESENT ILLNESS: The patient is a 63-year-old female who presents emergency department reporting that she drink alcohol. She was transferred to the [facility] by [facility] department about 45 min prior to arrival. Upon evaluation at the [facility] the patient was felt to be too drunk to be there and could not ambulate adequately. She was sent to the emergency department for further evaluation. The patient denies other drug use. Patient denies headache. She has no recent trauma. REVIEW OF SYSTEMS: 10 systems were reveiwed and are negative with the exception of the elements mentioned in the history of present illness. Past Medical/Surgical History: Includes alcohol abuse Smoking Status: Former smoker Physical Exam: Vitals noted GENERAL: Intoxicated appearing, alert. HEENT: Eyes normal to inspection, normal pharynx, no signs of dehydration. NECK: Normal, supple. RESPIRATORY: Clear to auscultation bilaterally, no rales, rhonchi or wheezing. CVS: Regular rate and rhythm, no rubs, murmurs, or gallops. ABDOMEN: Soft, nontender, nondistended. BACK: Normal to inspection, no CVA tenderness. SKIN: Normal color, no rash, warm, dry. No pallor. EXTREMITIES: No pedal edema, no calf tenderness no joint swelling. NEURO/PSYCH: Intoxicated appearing, normal motor sensory exam. No obvious cranial nerve deficit. Allergies/Adverse Reactions: azithromycin [From Zithromax] Allergy (Unknown, Verified 08/07/18 16:13) codeine Allergy (Unknown, Verified 08/07/18 16:13) homatropine [From Hydromet] Allergy (Unknown, Verified 08/07/18 16:13) homatropine methylbromide [From Hydromet] Allergy (Unknown, Verified 08/07/18 16 :13) hydrocodone bitartrate [From Vicodin] Allergy (Unknown, Verified 08/07/18 16:13) nitrofurantoin macrocrystalline [From Macrodantin] Allergy (Unknown, Verified 16:13) Sulfa (Sulfonamide Antibiotics) Allergy (Unknown, Verified 08/07/18 16:13) Medical Decision Making ED Course/Re-evaluation: In the emergency department I met EMS on arrival. I took report from the crew. I discussed the plan with the patient. I answered all her questions. Differential Diagnosis: My differential includes but is not limited to alcohol intoxication, drug abuse , dehydration, electrolyte abnormality, sugar abnormality, head injury Departure - Departure Disposition: Home, Routine, Self-Care Clinical Impression: Alcoholic intoxication Qualifiers: Complication of substance-induced condition: uncomplicated Qualified Code(s): F10.920 - Alcohol use, unspecified with intoxication, uncomplicated Condition: Good Instructions: Alcohol Intoxication (ED) Additional Instructions: Return with worsening symptoms or any other concerns. Referrals: [facility],. [Clinic] - 5-7 days, call for appt.
[2018-08-22] MEDS ORDERED: CHLORDIAZEPOXIDE 25MG PREPK#6 BTL TAKEHOME ONE (20:03)
[2018-08-22 20:10] VITALS: BP 132/76
== END 2018-08-22 20:09 | disposition home or self-care (01) ==
LOC: EDUNIT#
DX: F10.920 Alcohol use, unspecified with intoxication, uncomplicated (principal)